=== PATIENT | male | born 1960 | race Caucasian/White ===

== ENCOUNTER → 2019-12-26 | Day surgery (SDC) | payer OTHER ==
[2019-12-24 11:33] LABS: BASOPHILS # (AUTO) 0.1 (0.0-0.1); BASOPHILS % 1.2 % (0.0-1.0); EOSINOPHILS # (AUTO) 0.2 (0.0-0.4); EOSINOPHILS % 3.6 % (0.0-6.0); HEMATOCRIT 42.2 % (38.2-49.6); HEMOGLOBIN 14.5 g/dL (14.0-18.0); LYMPHOCYTES # (AUTO) 1.9 (1.0-3.2); LYMPHOCYTES % 36.5 % (18.0-39.1); MEAN CORPUSCULAR HEMOGLOBIN 29.8 pg (28-32); MEAN CORPUSCULAR HGB CONC 34.4 g/dL (31-35); MEAN CORPUSCULAR VOLUME 86.8 fL (81-99); MONOCYTES # (AUTO) 0.5 (0.2-0.8); MONOCYTES % 8.6 % (4.4-11.3); NEUTROPHILS # (AUTO) 2.6 (2.1-6.9); NEUTROPHILS % 49.7 % (38.7-80.0); PLATELET COUNT 263 x10e3/uL (140-360); RED BLOOD COUNT 4.86 x10e6/uL (4.3-5.7)
[2019-12-24 11:55] LABS: ALANINE AMINOTRANSFERASE 21 IU/L (0-55); ALBUMIN 3.9 g/dL (3.5-5.0); ALBUMIN/GLOBULIN RATIO 1.3 (0.8-2.0); ALKALINE PHOSPHATASE 41 IU/L (40-150); ANION GAP 14.9 mmol/L (8-16); BLOOD UREA NITROGEN 23 mg/dL (7-26); BUN/CREATININE RATIO 19 (6-25); CALCIUM 9.9 mg/dL (8.4-10.2); CARBON DIOXIDE 25 mmol/L (22-29); CHLORIDE 103 mmol/L (98-107); CREATININE, SERUM 1.19 mg/dL (0.72-1.25); EST GLOMERULAR FILTRATION RATE > 60 ML/MIN (60-); GLUCOSE 111 mg/dL (74-118); POTASSIUM 3.9 mmol/L (3.5-5.1); SODIUM 139 mmol/L (136-145)
[~2019-12-26] VITALS: Ht 175.3 cm; Wt 88.5 kg
[2019-12-26] VITALS (10 sets, daily range): BP systolic 98–116; BP diastolic 46–87
[~2019-12-26] MED LIST: ALPRAZOLAM 0.5 MG TAB ONE; AMLODIPINE BESYL5 MG PO; ASPIR 8181 MG PO; ATORVASTATIN CA10 MG PO; CETIRIZINE HCL10 MG PO; DIPHENHYDRAMINE HCL 25 MG CAP ONE; FENOFIBRATE145 MG PO; FENTANYL CITRATE/PF 100MCG/2 ML INJ ONE; FISH OIL 1,2001 EAC6 PO; HEPARIN SOD/SOD CHLORIDE 2,000 ML ONE; HYDROCHLOROTHIA25 MG PO; IOPAMIDOL 370 MG/ML 200 ML INFUS..BTL INJ ONE; LIDOCAINE HCL 2% LOCAL 20 ML VIAL ONE; MELATONIN3 M1 PO; METFORMIN HCL500 MG PO; MIDAZOLAM HCL 2 MG/2 ML VIAL ONE; QUINAPRIL HCL20 MG PO; SODIUM CHLORIDE 0.9% 1000ML 1,000 ML ONE; VERAPAMIL HCL 2.5 MG/ML 2 ML VIAL ONE; ZOLPIDEM TARTRA10 MG PO
--- OUTSIDE RECORDS SUMMARY | 2019-12-26 10:17 | XMS REPORT | Encounter Summary ---
Author Organization Unknown Address [address] [place] [address] Phone [phone] Care Team Providers Care Greek Professor Name Role Phone Dr. Victor Hugo Guevara 3 [phone] Natalee Delgado MD 3 [phone] Mike Cardoza MD 105 [phone] Cesar Trejo MD 107 [phone] Reason for Visit Hyperlipidemia; Insomnia; Hypertensive disorder; Type 2 diabetes mellitus; diabetic foot exam; lab follow-up Instructions 1. Hyperlipidemia atorvastatin 10 mg tablet fenofibrate nanocrystallized 145 mg tablet lipid panel, serum 2. Hypertensive disorder amlodipine 5 mg tablet hydrochlorothiazide 25 mg tablet quinapril 20 mg tablet CMP, serum or plasma CBC w/ auto diff electrocardiogram 3. Type 2 diabetes mellitus metformin 500 mg tablet HbA1c (hemoglobin A1c), blood microalbumin/creatinine, ratio, urine 4. Insomnia zolpidem 10 mg tablet 5. Influenza vaccination Flublok Quad [id number] (PF) 180 mcg (45 mcg x 4)/0.5 mL IM syringe 6. Immunization Shingrix Adjuvant Component (PF) intramuscular suspension 7. Body mass index 25-29 - overweight learning about healthy weight 8. Right bundle branch block Discussion Note: None recorded. Plan of Care Reminders Provider Appointments Return to Office on or around 02/19/2020 Henrik Tamez MD Lab Lipid Panel, Serum 08/20/2019 [facility] CMP, Serum or Plasma 08/20/2019 [facility] CBC W/ Auto Diff 08/20/2019 [facility] HbA1C (Hemoglobin a1C), Blood 08/20/2019 [facility] Microalbumin/creatinine, Ratio, Urine 08/20/2019 [facility] Referral None recorded. Procedures None recorded. Surgeries None recorded. Imaging Electrocardiogram 08/20/2019 [facility] Medications Name Start Date amlodipine 5 mg tablet TAKE 1 TABLET BY MOUTH EVERY DAY aspirin 81 mg tablet,delayed release Take 1 tablet every day by oral route. atorvastatin 10 mg tablet Take 1 tablet every day by oral route for 90 days. fenofibrate nanocrystallized 145 mg tablet Take 1 tablet every day by oral route for 90 days. Fish Oil take 1 tablet by mouth once a day hydrochlorothiazide 25 mg tablet Take 1 tablet every day by oral route for 90 days. metformin 500 mg tablet Take 1 tablet twice a day by oral route for 90 days. multivitamin capsule Take 1 tablet every day by oral route. quinapril 20 mg tablet Take 1 tablet every day by oral route for 90 days. zolpidem 10 mg tablet Take 1 tablet every day by oral route as needed for 30 days. Medications Administered None recorded. Vitals Height Weight BMI Blood Pressure 5 ft 9 in 191.6 lbs 28.3 kg/m2 110/84 mm[Hg] Lab Results None recorded. Allergies Code Code System Name Reaction Severity Status Onset NKDA Problems Name Status Onset Date Source Type 2 Diabetes Mellitus Active 09/05/2016 Hyperlipidemia Active 09/05/2016 Insomnia Active 09/05/2016 Hypertensive Disorder Active 09/05/2016 Procedures Date Name Performed by 11/26/2017 Hernia Repair Information not available Colonoscopy Information not available Finger Splint, Static Information not available Eye Surgery Information not available Hernia Repair Information not available Knee Surgery Information not available 08/20/2019 Electrocardiogram [facility] [address] [place] [address] (Work Place) Vaccine List Vaccine Type influenza, recombinant, quadrIvalent,injectable, preservative free 08/20/20190.5 mL influenza, unspecified formulation 08/25/2016 08/26/2017 pneumococcal polysaccharide PPV23 02/20/20190.5 mL pneumococcal, unspecified formulation 11/26/2014 Tdap 11/26/2013 zoster 11/26/2013 zoster subunit 08/20/2019 Social History Tobacco Smoking Status Never Smoker Past Encounters 08/20/2019 Hyperlipidemia; Hypertensive Disorder; Type 2 Diabetes Mellitus; Insomnia; Influenza Vaccination; Immunization; Body Mass Index 25-29 - Overweight; Right Bundle Branch Block Henrik Tamez MD: [address] [place] [address], Ph. History of Present Illness Note:F/u on chronic conditions. Needs refills. Compliant with meds. Non compliant with diet or exercise. Not checking glucose readings or BPs at home. No side effects with meds. No new concerns. Review of Systems Comprehensive General Adult ROS Reported By: Patient Constitutional: Constitutional: no fever Eyes: Eyes: no vision change ENMT: Ears: no ear pain. Nose: no sinus problems. Mouth/Throat: no sore throat Cardiovascular: Cardiovascular: no chest pain, no palpitations, no lightheadedness Respiratory: Respiratory: no cough, no wheezing, no shortness of breath Gastrointestinal: Gastrointestinal: no abdominal pain, no nausea, no vomiting, no constipation, no diarrhea Musculoskeletal: Musculoskeletal: no muscle aches, no swelling in the extremities Neurologic: Neurologic: no loss of consciousness, no headaches Psychiatric: Psych: no depression, no alcohol abuse, no anxiety, no suicidal thoughts Physical Exam General Adult Exam (male) Reported By: Patient Constitutional: General Appearance: healthy-appearing, overweight. Level of Distress: NAD. Ambulation: ambulating normally Psychiatric: Insight: good judgement. Mental Status: active and alert, normal mood, normal affect. Orientation: to time, to place, to person. Memory: recent memory normal, remote memory normal Eyes: Lids and Conjunctivae: non-injected, no discharge. EOM: EOMI ENMT: Ears: TMs clear. Nose: no sinus tenderness. Lips, Teeth, and Gums: no mouth or lip ulcers. Oropharynx: moist mucous membranes Neck: Neck: supple, trachea midline. Thyroid: no enlargement, non-tender Lungs: Auscultation: breath sounds normal Cardiovascular: Heart Auscultation: RRR, normal S1, normal S2, no murmurs. Neck vessels: no carotid bruits Abdomen: Inspection and Palpation: soft, non-distended, no tenderness, no guarding, no rebound tenderness Musculoskeletal:: Motor Strength and Tone: normal, normal tone. Joints, Bones, and Muscles: normal movement of all extremities. Extremities: no edema Neurologic: Gait and Station: normal gait. Cranial Nerves: grossly intact Skin: Inspection and palpation: no rash, no lesions
--- OUTSIDE RECORDS SUMMARY | 2019-12-26 10:17 | XMS REPORT ---
Author Organization Unknown Address [address] [place] [address] Phone [phone] Care Team Providers Care Engineering Systems Analyst Name Role Phone JEIMY NICKERSON MD 443 [phone] JEAN PIERRE MONTERO MD 105 [phone] Allergies Code Code System Name Reaction Severity Status Onset NKDA Medications Name Status Start Date Stop Date amlodipine 5 mg tablet TAKE 1 TABLET BY MOUTH EVERY DAY Active Not available aspirin 81 mg tablet,delayed release Take 1 tablet every day by oral route. Active Not available atorvastatin 10 mg tablet TAKE 1 TABLET BY MOUTH EVERY DAY Active Not available ciclopirox 8 % topical solution Active Not available ciprofloxacin 500 mg tablet Completed 02/20/2018 diphenoxylate-atropine 2.5 mg-0.025 mg tablet Completed 02/20/2018 fenofibrate nanocrystallized 145 mg tablet TAKE 1 TABLET BY MOUTH EVERY DAY Active Not available Fish Oil take 1 tablet by mouth once a day Active Not available hydrochlorothiazide 25 mg tablet TAKE 1 TABLET BY MOUTH EVERY DAY Active Not available metformin 500 mg tablet TAKE 1 TABLET(S) EVERY DAY BY MOUTH DIRECTED FOR 90 DAYS. Active Not available multivitamin capsule Take 1 tablet every day by oral route. Active Not available oxycodone-acetaminophen 10 mg-325 mg tablet TAKE ONE TABLET EVERY 4-6 HOURS NEEDED Completed 03/13/2017 oxycodone-acetaminophen 7.5 mg-325 mg tablet TAKE ONE TABLET EVERY 4-6 HOURS NEEDED Completed 03/13/2017 quinapril 20 mg tablet TAKE 1 TABLET BY MOUTH EVERY DAY Active Not available zolpidem 10 mg tablet Take 1 tablet every day by oral route as needed for 30 days. Active Not available Problems Name Status Onset Date Source Type 2 Diabetes Mellitus Active 09/05/2016 Hyperlipidemia Active 09/05/2016 Insomnia Active 09/05/2016 Hypertensive Disorder Active 09/05/2016 Procedures Date Name Performed by 09/26/2016 Colonoscopy Information not available Finger Splint, Static Information not available Eye Surgery Information not available Hernia Repair Information not available Knee Surgery Information not available 09/05/2016 Electrocardiogram [facility] [address] [place] [address] (Work Place) Lab Results Date Name Specimen Result Interpretation Description Value Range Status Address 03/13/2017 CBC W/ Auto Diff Wbc 5.78 x10*3/L 2.90-10.50 x10*3/L Final [facility] Rbc 5.06 10*12/L 3.61-5.21 10*12/L Final [facility] Laboratory: [address] [place] [address] Hemoglobin 15.30 g/dL 12.30-17.50 g/dL Final [facility]: [address] [place] [address] Hematocrit 43.5 % 37.1-51.3 % Final [facility]: [address] [place] [address] Mcv 86.0 fL 79.4-101.[address] [facility]: [address] Mch 30.2 pg 26.2-34.[address] [facility]: [address] [place] [address] Mchc 35.2 g/dL 30.2-35.6 g/dL Final [facility]: [address] [place] [address] RDW-SD 40.9 fL 35.8-49.[address] [facility]: [address] Platelet Count 311.0 k/uL 118.8-347.0 k/uL Final [facility]: [address] [place] [address] Mpv 10.6 fL 8.4-13.[address] [facility]: [address] Neut% 67.0 % 39.1-76.5 % Final [facility]: [address] [place] [address] Lymph% 22.3 % 13.8-46.8 % Final [facility]: [address] Mon% 7.8 % 4.6-14.4 % Final [facility]: [address] Eos% 2.6 % 0.8-7.3 % Final [facility]: [address] [place] [address] Baso% 0.3 % 0.2-1.5 % Final [facility]: [address], [place] Neut# 3.9 x10*3/L 0.8-7.0 x10*3/L Final [facility]: [address] [place] [address] Lymph# 1.3 x10*3/L 0.6-3.2 x10*3/L Final [facility]: [address] [facility], [place] Mon# 0.5 x10*3/L 0.2-1.0 x10*3/L Final [facility]: [address] [place] [address] Eos# 0.15 x10*3/L 0.04-0.51 x10*3/L Final [facility]: [address] [place] [address] Baso# 0.02 x10*3/L 0.01-0.09 x10*3/L Final [facility]: [address] [place] [address] 03/13/2017 CMP, Serum or Plasma Alt 24 U/L 0-55 U/L Final [facility]: [address] Ast 19 U/L 5-34 U/L Final [facility]: [address] Bun 18 mg/dL 8-26 mg/dL Final [facility]: [address] Alk Phos 48 unit/L 40-150 unit/L Final [facility]: [address] High Glucose 142 mg/dL 70-99 mg/dL Final [facility]: [address] Albumin 4.2 g/dL 3.5-5.0 g/dL Final [facility]: [address] Creatinine 1.23 mg/dL 0.72-1.25 mg/dL Final [facility]: [address] eGFR Non- >60 mL/min/1.73m2 >60 mL/min/1.73m2 [address] [facility]: [address] Total Bilirubin 0.8 mg/dL 0.2-1.2 mg/dL Final [facility] [address] [facility]GFR - >60 mL/min/1.73m2 >60 mL/min/1.73m2 [address] [facility]: [address] [place], [place] Sodium 140 mEq/L 136-145 mEq/L Final [facility]: [address] [place] [address], [place] Potassium 4.0 mEq/L 3.5-5.1 mEq/L Final [facility]: [address] [place] [address], [place] Chloride 105 mmol/L 98-107 mmol/L Final [facility]: [address] [place] [address], [place] Total Protein 7.4 g/dL 6.4-8.3 g/dL Final [facility]: [address] Calcium 9.9 mg/dL 8.4-10.2 mg/dL Final [facility]: [address] Low Co2 21.6 mmol/L 22.0-29.0 mmol/L Final [facility]: [address] Anion Gap [address] [facility]: [address] 03/13/2017 Lipid Panel, Serum Hdl 41 mg/dL 40-60 mg/dL Final [facility]: [address] Triglyceride 134 mg/dL 0-149 mg/dL Final [facility]: [address] VLDL Calc. 27 mg/dL Final [facility]: [address] cholesterol/HDL Ratio 4 mg/dL Final [facility]: [address] non-HDL Cholesterol Calc. 131 mg/dL 0-160 mg/dL Final [facility]: [address] Cholesterol 172 mg/dL 0-199 mg/dL Final [facility]: [address] LDL Calc. 104 mg/dL 0-130 mg/dL Final [facility]: [address]rig[address] 03/13/2017 HbA1C (Hemoglobin a1C), Blood High A1C W/eag 6.3 % 1.0-5.7 % Final [facility]: [address] Average Blood Glucose 134 mg/dL Final [facility] [address] [facility] 12/13/2016 CMP, Serum or Plasma Alt 24 U/L 0-55 U/L Final [facility]: [address] Ast 21 U/L 5-34 U/L Final [facility]: [address] Bun 20 mg/dL 8-26 mg/dL Final [facility]: [address] Alk Phos 48 unit/L 40-150 unit/L Final [facility]: [address] High Glucose 123 mg/dL 70-99 mg/dL Final [facility]: [address] Albumin 4.3 g/dL 3.5-5.0 g/dL Final [facility]: [address] High Creatinine 1.30 mg/dL 0.72-1.25 mg/dL Final [facility]: [address] Low eGFR Non- 57 mL/min/1.73m2 >60 mL/min/1.73m2 [address] [facility]: [address] Total Bilirubin 0.9 mg/dL 0.2-1.2 mg/dL Final [facility]: [address] eGFR - >60 mL/min/1.73m2 >60 mL/min/1.73m2 Final [facility]: [address] Sodium 143 mEq/L 137-144 mEq/L Final [facility]: [address] Potassium 4.7 mEq/L 3.5-5.0 mEq/L Final [facility]: [address] Chloride 106 mmol/L 101-110 mmol/L Final [facility]: [address] Total Protein 7.5 g/dL 6.4-8.3 g/dL Final [facility]: [address] Calcium 10.0 mg/dL 8.4-10.2 mg/dL Final [facility]: [facility] [facility] [place] [address], [place] Co2 29 mmol/L 21-29 mmol/L Final [facility]: [address] [place] [address], [place] Anion Gap [address] [facility]: [address] Fwnubia [place] [address], [place] 12/13/2016 Lipid Panel, Serum Low Hdl 39 mg/dL 40-60 mg/dL Final [facility]: [address] [place] [address], [place] High Triglyceride 174 mg/dL 0-149 mg/dL Final [facility]: [address] [place] [address], [place] VLDL Calc. 35 mg/dL Final [facility]: [address] [facility] [place] [address], [place] cholesterol/HDL Ratio 4 mg/dL Final [facility]: [address] [place] [address], [place] non-HDL Cholesterol Calc. 118 mg/dL 0-160 mg/dL Final [facility]: [address] [place] [address], [place] Cholesterol 157 mg/dL 0-199 mg/dL Final [facility]: [address] [place] [address], [place] LDL Calc. 83 mg/dL 0-130 mg/dL Final [facility]: [address] F[address] [place] [address], [place] 12/13/2016 HbA1C (Hemoglobin a1C), Blood High A1C W/eag 6.8 % 1.0-5.7 % Final [facility]: [address] [place] [address], [place] Average Blood Glucose 148 mg/dL Final [facility]: [address] T[address] [place] [address], [place] 09/05/2016 HbA1C (Hemoglobin a1C), Blood No observation recorded. [facility]: [id number], [place] 09/05/2016 Lipid Panel, Serum No observation recorded. [facility]: [id number], [place] 09/05/2016 CMP, Serum or Plasma No observation recorded. [facility]: [id number], [place] 05/23/2016 CMP, Serum or Plasma No observation recorded. [facility]: [id number], [place] 02/15/2016 CMP, Serum or Plasma No observation recorded. [facility]: [id number], [place] CMP, Serum or Plasma High Glucose, Serum 155 mg/dL 65-99 mg/dL Final [facility]: [address] [place] Bun 22 mg/dL 6-24 mg/dL Final [facility]: [address], [place] Creatinine, Serum 1.15 mg/dL 0.76-1.27 mg/dL Final [facility]: [address], [place] eGFR If Nonafricn AM 70 mL/min/1.73 >59 mL/min/1.[address] [facility]: [address], [place] eGFR If Africn AM 81 mL/min/1.73 >59 mL/min/1.[address] [facility]: [address] [place] BUN/creatinine Ratio 19 9-[address] [facility]: [address], [place] Sodium, Serum 143 mmol/L 134-144 mmol/L Final [facility]: [address] [place] Potassium, Serum 4.5 mmol/L 3.5-5.2 mmol/L Final [facility]: [address], [place] Chloride, Serum 101 mmol/L 97-108 mmol/L Final [facility]: [address] [place] Carbon Dioxide, Total 23 mmol/L 18-29 mmol/L Final [facility]: [address], [place] High Calcium, Serum 10.7 mg/dL 8.7-10.2 mg/dL Final [facility]: [address] [place] Protein, Total, Serum 7.4 g/dL 6.0-8.5 g/dL Final [facility]: [address], [place] Albumin, Serum 4.7 g/dL 3.5-5.5 g/dL Final [facility]: [address], [place] Globulin, Total 2.7 g/dL 1.5-4.5 g/dL Final [facility]: [address], [place] A/g Ratio 1.7 1.1-2.[address] [facility]: [address], [place] Bilirubin, Total 0.6 mg/dL 0.0-1.2 mg/dL Final [facility]: [address] [place] [address], [place] Alkaline Phosphatase, S 54 IU/L 39-117 IU/L Final [facility]: [address] Ast (Sgot) 23 IU/L 0-40 IU/L Final [facility]: [address] Alt (Sgpt) 29 IU/L 0-44 IU/L Final [facility]: [address] Lipid Panel, Serum Cholesterol, Total 157 mg/dL 100-199 mg/dL Final [facility]: [address] High Triglycerides 270 mg/dL 0-149 mg/dL Final [facility]: [address] Low HDL Cholesterol 36 mg/dL >39 mg/dL Final [facility]: [address] High VLDL Cholesterol Carter 54 mg/dL 5-40 mg/dL Final [facility]: [address] LDL Cholesterol Calc 67 mg/dL 0-99 mg/dL Final [facility]: [address] HbA1C (Hemoglobin a1C), Blood High Hemoglobin a1C 7.2 % 4.8-5.6 % Final [facility]: [address] Estim. Avg Glu (EAG) 160 mg/dL Final [facility]: [address] CMP, Serum or Plasma Ambig Abbrev [id number] Default comment Final [facility]: [address] Lipid Panel, Serum Ambig Abbrev LP Default comment Final [facility]: [address] [place] [address], [place] Albumin:creatinine Ratio, Urine Type Urine Microlalbumin 30 mg/L [facility]: [address], [place] Type Urine Creatinine 200 mg/dL [facility]: [address] [facility], [place] Type A:C Ratio <30 mg/g (Normal) [facility] [address] [facility], [place] Albumin:creatinine Ratio, Urine Urine Type Urine Microlalbumin 30 mg/L [facility] [address] [facility], [place] Urine Type Urine Creatinine 300 mg/dL [facility]: [address] [facility] Urine Type A:C Ratio <30 mg/g (Normal) [facility]: [address] [facility] Glucose, Fingerstick, Blood Blood Glucose: mg/dl 177 [facility]: [address] [facility] Albumin:creatinine Ratio, Urine Type Urine Microlalbumin 30 mg/L [facility]: [address] [facility] Type Urine Creatinine 300 mg/dL [facility]: [address] [facility] Type A:C Ratio <30 mg/g (Normal) [facility]: [address] [place] [address] Electrocardiogram No observation recorded. [facility]: [address] [facility] Glucose, Fingerstick, Blood Blood Glucose: mg/dl 132 [facility]: [address] [facility] Past Encounters 02/20/2018 Insomnia; Hypertensive Disorder; Type 2 Diabetes Mellitus; Hyperlipidemia; Screening for Malignant Neoplasm of Prostate Victor Hugo Guevara MD: [address] [place] [phone], Ph. 12/31/2017 Acute Gastroenteritis; Hyperlipidemia Victor Hugo Guevara MD: [address] [place] [phone], Ph. 03/13/2017 Hypertensive Disorder; Type 2 Diabetes Mellitus; Hyperlipidemia; Insomnia Natalee Delgado MD: [address] [place] [phone], Ph. 01/01/2017 Thrombosed External Hemorrhoids Henrikjennyfer Tamez MD: [address] [place] [phone], Ph. 12/19/2016 Type 2 Diabetes Mellitus; Hyperlipidemia; Hypertensive Disorder; Onychomycosis Henrik Tamez MD: [address] [place] [phone], Ph. 12/13/2016 Type 2 Diabetes Mellitus; Benign Essential Hypertension; Hyperlipidemia Henrik Tamez MD: [address] [place] [address], Ph. 09/05/2016 Type 2 Diabetes Mellitus; Benign Essential Hypertension; Electrocardiogram Abnormal; Hyperlipidemia; Insomnia; Serum Creatinine Raised Henrik Tamez MD: [address] [place] [address], Ph. Social History Smoking Status Never Smoker Vaccine List Vaccine Type influenza, unspecified formulation 08/25/2016 08/26/2017 pneumococcal, unspecified formulation 11/26/2014 Tdap 11/26/2013 zoster 11/26/2013 Plan of Care Patient Instructions continue all meds <wgt > exercise clear liquids 24 hours fill rx if becomes symptomtoc Reminders Provider Appointments None recorded. Lab None recorded. Referral None recorded. Procedures None recorded. Surgeries None recorded. Imaging None recorded. Vitals 02/20/2018 02:00PM Est Patient Height Weight BMI Blood Pressure 5 ft 9 in 215 lbs 31.7 kg/m2 128/90 mm[Hg] 12/31/2017 01:15PM Est Patient Height Weight Blood Pressure 5 ft 9 in 104/70 mm[Hg] 03/13/2017 09:45AM Est Patient Height Weight BMI Blood Pressure 5 ft 9 in 205 lbs 30.3 kg/m2 (1) 132/92 mm[Hg] (2) 132/91 mm[Hg] 01/01/2017 11:45AM Est Patient Height Weight BMI Blood Pressure 5 ft 9 in 210 lbs 31 kg/m2 124/86 mm[Hg] 12/19/2016 01:30PM Est Patient Height Weight BMI Blood Pressure 5 ft 9 in 213 lbs 31.5 kg/m2 (1) 133/100 mm[Hg] (2) 131/98 mm[Hg] 09/05/2016 10:00AM Est Patient Height Weight BMI Blood Pressure 5 ft 9 in 213 lbs 31.5 kg/m2 (1) 136/102 mm[Hg] (2) 121/100 mm[Hg]
--- OUTSIDE RECORDS SUMMARY | 2019-12-26 10:17 | XMS REPORT | Encounter Summary ---
Author Organization Unknown Address [address] [place] [address] Phone [phone] Care Team Providers Care Consulting Solution Director Name Role Phone Dr. Victor Hugo Guevara 3 [phone] Natalee Delgado MD 3 [phone] Kamaljit Cardoza MD 105 [phone] Cesar Trejo MD 107 [phone] Reason for Visit Hyperlipidemia; Insomnia; Hypertensive disorder; Type 2 diabetes mellitus Instructions 1. Body mass index 25-29 - overweight learning about healthy weight 2. Insomnia zolpidem 10 mg tablet 3. Immunization Pneumovax 23 25 mcg/0.5 mL injection syringe 4. Hypertensive disorder quinapril 20 mg tablet hydrochlorothiazide 25 mg tablet amlodipine 5 mg tablet 5. Type 2 diabetes mellitus metformin 500 mg tablet HbA1c (hemoglobin A1c), blood CMP, serum or plasma lipid panel, serum 6. Hyperlipidemia fenofibrate nanocrystallized 145 mg tablet atorvastatin 10 mg tablet high cholesterol: care instructions 7. Actinic keratosis Discussion Note: None recorded. Plan of Care Patient Instructions continue all meds /diet/exercise,arrange own dermatology consult Reminders Provider Appointments Return to Office on or around 05/23/2019 Victor Hugo Guevara MD Lab HbA1C (Hemoglobin a1C), Blood 02/20/2019 [facility] CMP, Serum or Plasma 02/20/2019 [facility] Lipid Panel, Serum 02/20/2019 [facility] Referral None recorded. Procedures None recorded. Surgeries None recorded. Imaging None recorded. Medications Name Start Date amlodipine 5 mg tablet Take 1 tablet every day by oral route for 90 days. aspirin 81 mg tablet,delayed release Take 1 [...] metformin 500 mg tablet Take 1 tablet every day [...] BMI Blood Pressure 5 ft 9 in 199 lbs 29.4 kg/m2 118/82 mm[Hg] Lab Results None recorded. Allergies Code Code System Name Reaction Severity Status Onset NKDA Problems Name Status Onset Date Source Type 2 Diabetes Mellitus Active 09/05/2016 Hyperlipidemia Active 09/05/2016 Insomnia Active 09/05/2016 Hypertensive Disorder Active 09/05/2016 Procedures Date Name Performed by 11/26/2017 Colonoscopy Information not available 11/26/2017 Hernia Repair Information not available 09/26/2016 Colonoscopy Information not available Finger Splint, Static Information not available Eye Surgery Information not available Hernia Repair Information not available Knee Surgery Information not available Vaccine List Vaccine Type influenza, unspecified formulation 08/25/2016 08/26/2017 pneumococcal, unspecified formulation 11/26/2014 Tdap 11/26/2013 zoster 11/26/2013 Social History Smoking Status Never Smoker Past Encounters 02/20/2019 Body Mass Index 25-29 - Overweight; Insomnia; Immunization; Hypertensive Disorder; Type 2 Diabetes Mellitus; Hyperlipidemia; Actinic Keratosis Victor Hugo Guevara MD: [address] [place] [address], Ph. History of Present Illness Note:f/u chronic conditions,compliant with meds /diet/exercise,13# loss since longterm
alternates otc melatonin with zolpidem for insomnia Review of Systems:ROS as noted in the HPI Review of Systems None recorded. Physical Exam Cardiology Exam Reported By: Patient Constitutional: General Appearance: well-developed, appears stated age. Level of Distress: comfortable Psychiatric: Mental Status: alert, normal affect. Orientation: oriented to time, place, and person. Insight: good judgment Eyes: Lids and Conjunctivae: non-injected, anicteric, no discharge, no pallor, no arcus senilis, no xanthelasma. Pupils: PERRLA Neck: Neck: supple, trachea midline, no masses, FROM. Carotid Arteries: bilateral normal upstroke, no bruits, no thrills. Cervical Lymph Nodes: non tender, not enlarged. Thyroid: not enlarged, non tender, no nodules Lungs: Respiratory Effort: unlabored. Chest Exam: normal curvature, no thoracic deformity, no chest wall tenderness. Percussion: resonant. Auscultation: clear, no wheezing, no rales, no rhonchi Cardiovascular: Precordial Exam: non displaced focal PMI, no heaves, no precordial thrills. Rate And Rhythm: regular. Heart Sounds: normal S1, physiologically split S2, no rub, no gallop, no click. Systolic Murmur: not heard. Diastolic Murmur: not heard. Extremities: no cyanosis, no edema, no peripheral signs of emboli Skin: Inspection and Palpation: warm and dry; crusting facial lesions. Nails: no clubbing
--- OUTSIDE RECORDS SUMMARY | 2019-12-26 10:17 | XMS REPORT ---
Author [facility] Address Unknown Phone Unavailable Care Team Providers Care Solution Design Engineer Name Role Phone Unavailable Unavailable Payers Payer Name Policy Type Policy Number Effective Date Expiration Date Problems This patient has no known problems. Allergies, Adverse Reactions, Alerts Allergy Name Allergy Type Status Severity Reaction(s) Onset Date Inactive Date Treating Clinician Comments No Known Allergies DA Active U 2015-04-05 00:00:00 Medications This patient has no known medications. Results Test Description Test Time Test Comments Text Results Atomic Results Result Comments LIPOMA 2018-11-01 16:11:00 RUN DATE: 11/01/18 [facility] PAGE 1 RUN TIME: 1611 Specimen Inquiry RUN USER: INTERFACE PATIENT: GRISEL FOX MORGAN LOC: [facility] U #: [id number] AGE/SX: 58/M ROOM: RE10/31/18REG DR: Nkiolas Wilhelm MD : 56 BED: DIS: STATUS: [facility] TLOC: SPEC #: [id number] RECD: 10/31/18 STATUS: STEFFANY MURRAY #: [id number] FLORENC[place]: 10/31/[address] [facility] [address]: Nikolas Wilhelm MD ENTERED: 10/31/18 SP TYPE: LIPOMA OTHR DR: Henrik Zabala MD ORDERED: GROSS [place]: [place] [address] [place] [address] [email or web address] Nikolas Wilhelm MD [address] [place] [address] PROCEDURES: GROSS (11/01/18-1251) TISSUES: INGUINAL REGION, NOS - LEFT LIPOMA CLINICAL HISTORY COLLECTION DATE: 10/31/2018 LEFT INGUINAL HERNIA FINAL DIAGNOSIS Left inguinal lipoma, repair: ADIPOSE TISSUE CONSISTENT WITH HERNIA CONTENTS NEGATIVE FOR MALIGNANCY DMW/sm D [id number] MACROSCOPIC The specimen is received in formalin, labeled with the patient's name, and identified as "Left inguinal lipoma". It consists of an ovoid portion of yellow fatty tissue with smooth rounded borders. The specimen measures 6.2 by up to 2 by up to 1 cm. The cut surface of the tissue is yellow and homogeneous with no areas of hemorrhage, necrosis or increased fibrosis. Gang Vibrator Operator tissue is submitted in a single cassette. CONTINUED ON NEXT PAGE RUN DATE: 11/01/18 [facility] PAGE 2 RUN TIME: 161 Specimen Inquiry RUN USER: INTERFACE SPEC #: [id number] PATIENT: GRISEL FOX #[id number] (Continued)----- MACROSCOPIC (Continued) GROSS PERFORMED AT [address] [address] [phone] MICROSCOPIC MICROSCOPIC PERFORMED AT [facility] All of the stains, including any controls performed, stain appropriately. [facility] [address] [place] [address] [phone] PERFORMING SITE Diagnosis performed at: [facility] [address] [place] [address] Signed SIGNATURE ON FILE Vale Lagos 11/01/18 3271 END OF REPORT
--- OUTSIDE RECORDS SUMMARY | 2019-12-26 10:17 | XMS REPORT | Encounter Summary ---
Author Organization Unknown Address [address] [place] [id number] Phone [phone] Care Team Providers Care Heater Helper Name Role Phone Dr. Victor Hugo Guevara 3 [phone] Natalee Delgado MD 3 [phone] Kamaljit Cardoza MD 105 [phone] Cesar Trejo MD 107 [phone] Reason for Visit Hyperlipidemia; Insomnia; Hypertensive disorder; Type 2 diabetes mellitus; diabetic foot exam Instructions 1. Type 2 diabetes mellitus metformin 500 mg tablet HbA1c (hemoglobin A1c), blood 2. Insomnia zolpidem 10 mg tablet 3. Hyperlipidemia high cholesterol: care instructions atorvastatin 10 mg tablet fenofibrate nanocrystallized 145 mg tablet lipid panel, serum CMP, serum or plasma TSH, serum or plasma 4. Hypertensive disorder amlodipine 5 mg tablet hydrochlorothiazide 25 mg tablet quinapril 20 mg tablet 5. Screening for disorder 6. Body mass index 25-29 - overweight learning about healthy weight 7. Screening for malignant neoplasm of prostate PSA, serum or plasma Discussion Note: None recorded. Plan of Care Reminders Provider Appointments Return to Office on or around 08/12/2019 Henrik Tamez MD Lab HbA1C (Hemoglobin a1C), Blood 05/12/2019 [facility] Lipid Panel, Serum 05/12/2019 [facility] CMP, Serum or Plasma 05/12/2019 [facility] TSH, Serum or Plasma 05/12/2019 [facility] PSA, Serum or Plasma 05/12/2019 [facility] Referral None recorded. Procedures None recorded. [...] BMI Blood Pressure 5 ft 9 in 193.4 lbs 28.6 kg/m2 122/80 mm[Hg] Lab Results None recorded. Allergies Code [...] Vaccine Type influenza, unspecified formulation 08/25/2016 08/26/2017 pneumococcal polysaccharide PPV23 02/20/20190.5 mL pneumococcal, unspecified formulation 11/26/2014 Tdap 11/26/2013 zoster 11/26/2013 Social History Smoking Status Never Smoker Past Encounters 05/12/2019 Type 2 Diabetes Mellitus; Insomnia; Hyperlipidemia; Hypertensive Disorder; Screening for Disorder; Body Mass Index 25-29 - Overweight; Screening for Malignant Neoplasm of Prostate Henrik Tamez MD: [address] [place] [address], Ph. History of Present Illness Note:F/u on [...] no murmurs. Neck vessels: no carotid bruits Musculoskeletal:: Motor Strength and Tone: normal, normal tone. Joints, Bones, and Muscles: normal movement of all extremities. Extremities: no edema Neurologic: Gait and Station: normal gait. Cranial Nerves: grossly intact Skin: Inspection and palpation: no rash, no lesions
--- NOTE | 2019-12-26 20:30 | Operative Report ---
DATE OF PROCEDURE: 12/26/2019 SURGEON: Theo Landry MD INDICATION: Coronary artery disease, abnormal stress test. PROCEDURES PERFORMED: 1. Left heart catheterization, selective coronary angiography. 2. Deployment of right wrist TR band. COMPLICATIONS: None. RECOMMENDATIONS: Medical therapy. DESCRIPTION OF PROCEDURE: Access obtained in the right radial artery. A 5-Greenlandic sheath was placed. Coronary angiography demonstrated 50% mid left anterior descending artery stenosis. Remaining vessels including circumflex and right coronary artery had mild less than 10% luminal stenosis. No critical stenosis or occlusions. No intervention deemed necessary. Wire and guide sheath removed. The patient discharged home same day. Theo Landry MD KSB/MODL /[id number]
== END | disposition home or self-care (01) ==
LOC: CATH LAB 10:15
PROVIDERS: ATTEND Internal Medicine Interventional Cardiology
DX: I25.10 Atherosclerotic heart disease of native coronary artery without angina pectoris (principal); G47.33 Obstructive sleep apnea (adult) (pediatric); I87.2 Venous insufficiency (chronic) (peripheral); I73.9 Peripheral vascular disease, unspecified; Z01.812 Encounter for preprocedural laboratory examination
CPT/HCPCS: 36415; 80053; 82948; 85025; 93454; 99152; C1769; C1887; J2001; J2250; J3010; J7030; Q9967